=== PATIENT | female | born 1960 ===

== ENCOUNTER 2020-12-24 00:31 | Inpatient (IN) | payer MEDICARE, OTHER ==
[~2020-12-24] VITALS: Ht 170.2 cm; Wt 78.9 kg
--- NOTE | 2020-12-24 00:35 | NUR ---
PT BIB [facility] FOR MEDICAL CLEARANCE, 5150 HOLD DTS/DTO. ARRIVED CALM AND COOPERATIVE. DENIES CP/PRESSURE. NO GI/ DISTRESS. A/O X2-3, NO SOB OR LABORED BREATHING. AFEBRILE.
--- NOTE | 2020-12-24 00:40 | NUR ---
DR. HIGGINBOTHAM AT BEDSIDE, MSE IN PROGRESS.
--- NOTE | 2020-12-24 02:49 | NUR ---
Gave report to MHU nurse.
[2020-12-24] MEDS ORDERED: LITH300C2 PO (02:53)
[2020-12-24] MEDS ORDERED: DOCU100C36 PO (02:53)
[2020-12-24] MEDS ORDERED: TRIH2TAB5 PO (02:53)
--- NOTE | 2020-12-24 04:05 | NUR ---
Pt. admitted to MHU , under care of and Ac Resendiz Dx: psychosis, 5150 hold DTS/DTO Belongs List completed
[2020-12-24 04:12] VITALS: BP 142/70
[2020-12-24] MEDS ORDERED: ACETAMINOPHEN 325 MG TABLET PO PRN (04:15)
[2020-12-24] MEDS ORDERED: LORAZEPAM 0.5 MG TABLET PO PRN (04:15)
[2020-12-24] MEDS ORDERED: MAG HYDROX/AL HYDROX/SIMETH 30 ML LIQUID UDC PO PRN (04:15)
[2020-12-24] MEDS ORDERED: TEMAZEPAM 7.5 MG CAPSULE PO PRN (04:15)
--- NOTE | 2020-12-24 04:45 | NUR ---
At about 0410, admitted 60 years old female to [facility] on a 5150 for DTS and DTO. upon admission patient noted A/O x 3 able to verbalized feelings. patient was given advised of her hold and given her advisement as well as her booklet for patient right in mental health facilities. Patient stated that, "I know i said bad things to the nurse's but that was my only way because i don't want to go to that place. I told them but they didn't listen to me". patient was clam and cooperative with admission process. she denied SI/HI/VH/AH she is able to verbally CFS. She is under the care of Dr Mendez. Will continue with Q15 min checks
[2020-12-24 08:15] VITALS: BP 131/62
--- NOTE | 2020-12-24 08:45 | NUR ---
Gps/Sales Representative Livestock- Alert, ambulatory, making her simple needs known to staff, guarded, , encouraged verbalizations of her feelings, Will continue to assess monitor behavior.
--- NOTE | 2020-12-24 12:27 | NUR ---
Gps/Coil Rewind Machine Operator- Showered self ind. after set up, anxious, able to make her simple needs, known, at times when questions asked by staff, she'll say she does not want to talk about it.Stayed in the dinning room during her lunch.
[2020-12-24] MEDS: risperiDONE 1 MG TABLET PO SCH ×2 (13:02→18:01)
[2020-12-24] MEDS ORDERED: ATOR40TA PO (14:00)
[2020-12-24] MEDS ORDERED: FAMO-132 PO (14:01)
[2020-12-24] MEDS ORDERED: LISI10TA29 PO (14:02)
[2020-12-24 16:46] VITALS: BP 122/53
[2020-12-24 20:00] VITALS: BP 126/61
[2020-12-24] MEDS: DIVALPROEX 250 MG TABLET.DR PO SCH (20:58)
[2020-12-24] MEDS: ATORVASTATIN 40 MG TABLET PO SCH (20:58)
[2020-12-25 07:30] VITALS: BP 137/67
[2020-12-25 07:53] LABS: HEMATOCRIT 39.5 % (31.2-41.9); MEAN CORPUSCULAR HEMOGLOBIN 29.4 uug (24.7-32.8); MEAN CORPUSCULAR VOLUME 89.6 fL (75.5-95.3); PLATELET COUNT (AUTO) 187 K/uL (179-408)
--- NOTE | 2020-12-25 08:06 | NUR ---
FIREARMS REPORT: Casino Floor Runner completed and submitted a DOJ firearms report for 5150 grave disability certification. A copy of report has been placed in patient chart.
[2020-12-25 08:08] LABS: BILIRUBIN,TOTAL 0.4 mg/dL (0.2-1.0); CREATININE 0.6 mg/dL (0.6-1.3); POTASSIUM 4.4 mmol/L (3.5-5.1); TOTAL PROTEIN, SERUM 6.6 g/dL (6.4-8.2)
[2020-12-25] MEDS: DOCUSATE SODIUM 100 MG CAPSULE PO SCH ×2 (08:45→16:35)
[2020-12-25] MEDS: DIVALPROEX 250 MG TABLET.DR PO SCH ×2 (08:45→21:23)
[2020-12-25] MEDS: risperiDONE 1 MG TABLET PO SCH ×3 (08:45→16:35)
[2020-12-25] MEDS: FAMOTIDINE 20 MG TABLET PO SCH (08:45)
[2020-12-25] MEDS: LISINOPRIL 10 MG TABLET PO SCH (08:45)
--- NOTE | 2020-12-25 09:40 | NUR ---
RANDI Initial Discharge Note: Patient currently resides at [facility]; ([phone]). Patient does not want to return to her current facility. This SW contacted pt's public guardian conservator Jennifer ([phone]) and left a detailed voicemail. RANDI will work with treatment team.
[2020-12-25] MEDS: NICOTINE 14 MG/24HR PATCH TD SCH (10:00)
--- NOTE | 2020-12-25 10:55 | NUR ---
Social Work Note/Substance Abuse Intervention: Patient was provided with a brief substance abuse intervention and referred to [facility] ([phone]), [facility] ([phone]), and [facility] ([phone]) for smoking.
--- NOTE | 2020-12-25 11:34 | NUR ---
SW Public Guardian: This SW contacted Jennifer ([phone]) and left a voicemail and in her voicemail she stated to contact ([phone]) public guardian office and request for Unit 4. This SW spoke with Jesse Chapman who stated Jennifer is off for today but he can sign the detain and treat and stated he is a deputy public guardian as well. This SW faxed it to ([phone]).
--- NOTE | 2020-12-25 12:06 | NUR ---
Detain and Treat: This SW contacted Jennifer ([phone]) and left a voicemail and in her voicemail she stated to contact ([phone]) public guardian office and request for Unit 4. This SW spoke with Jesse Chapman ([phone]) and he signed pt's detain and treat as Jennifer is not in the office. SW left public guardian Brittaney a voicemail ([phone]) that Jesse montejo signed pt's detain and treat. This SW placed detain and treat in patient's chart.
--- NOTE | 2020-12-25 13:22 | NUR ---
RANDI Individual Therapy: social worker clinical met with patient for brief counseling and assessed for patient's presenting problem aggressive behavior. Pt appeared to be paranoid and delusional. Pt was fixated on her current facility and does not want to go back. RANDI comforted pt and stated this designer writer will help pt find a different facility. Pt appeared happy afterwards.
--- NOTE | 2020-12-25 15:11 | NUR ---
SNF Contact: This SW spoke with pt's nursing facility [facility] ([phone]) and spoke with admissions who stated pt has only been there for a day and will not accept pt back due to pt being aggressive. Admin Ralu stated they will not be able to take pt back.
--- NOTE | 2020-12-25 15:23 | NUR ---
SNF Referral: This RANDI faxed clinicals to Annetta darnell from [facility] (cellphone:[phone]) for placement option. Addendum: 12/26/20 at 1114 by RANDY HORAN Patient is accepted to [facility] for placement.
[2020-12-25 15:28] VITALS: BP 90/45
[2020-12-25 20:07] VITALS: BP 126/54
[2020-12-25] MEDS ORDERED: TEMAZEPAM 7.5 MG CAPSULE PO PRN (21:00)
[2020-12-25] MEDS: ATORVASTATIN 40 MG TABLET PO SCH (21:23)
[2020-12-26 07:30] VITALS: BP 109/59
[2020-12-26] MEDS: DOCUSATE SODIUM 100 MG CAPSULE PO SCH ×2 (08:19→17:53)
[2020-12-26] MEDS: FAMOTIDINE 20 MG TABLET PO SCH (08:20)
[2020-12-26] MEDS: risperiDONE 1 MG TABLET PO SCH ×3 (08:20→17:53)
[2020-12-26] MEDS: LISINOPRIL 10 MG TABLET PO SCH (08:20)
[2020-12-26] MEDS: DIVALPROEX 250 MG TABLET.DR PO SCH (08:20)
[2020-12-26] MEDS: NICOTINE 14 MG/24HR PATCH TD SCH (08:20)
--- NOTE | 2020-12-26 09:37 | NUR ---
RANDI Public Guardian: This RANDI contacted Jennifer ([phone]) and left a voicemail and in her voicemail she stated to contact ([phone]) public guardian office and request for Unit 4. Duty worker of the day is not available and public health social worker left a voicemail for Duty Worker Laci to discuss discharge plan.
--- NOTE | 2020-12-26 11:12 | NUR ---
RANDI Public Guardian: This SW received a call back from Jennifer ([phone]) and discussed discharge planning. RANDI informed of patient's acceptance to [facility] and Jennifer is agreeable with this placement. She stated it is in their list of facilities and patient can go there upon discharge from the hospital.
[2020-12-26 15:35] VITALS: BP 103/62
[2020-12-26 20:14] VITALS: BP 113/72
[2020-12-26] MEDS ORDERED: DIVALPROEX 250 MG TABLET.DR PO SCH (21:00)
[2020-12-26] MEDS ORDERED: risperiDONE 1 MG TABLET PO SCH (21:00)
[2020-12-26] MEDS: ATORVASTATIN 40 MG TABLET PO SCH (21:04)
[2020-12-26] MEDS: MAGNESIUM HYDROXIDE 30 ML LIQUID UDC PO PRN (21:20)
[2020-12-27 07:30] VITALS: BP 119/77
--- NOTE | 2020-12-27 07:30 | NUR ---
Received report from CULLEN Dillard. All questions, comments, and concerns were addressed. Received patient resting quietly in her assigned bed. Bed is in low and locked position.
[2020-12-27] MEDS: DIVALPROEX 250 MG TABLET.DR PO SCH ×2 (08:22→20:26)
[2020-12-27] MEDS: DOCUSATE SODIUM 100 MG CAPSULE PO SCH ×2 (08:22→16:16)
[2020-12-27] MEDS: FAMOTIDINE 20 MG TABLET PO SCH (08:22)
[2020-12-27] MEDS: LISINOPRIL 10 MG TABLET PO SCH (08:22)
[2020-12-27] MEDS: risperiDONE 1 MG TABLET PO SCH ×3 (08:22→20:27)
[2020-12-27] MEDS: NICOTINE 14 MG/24HR PATCH TD SCH (08:23)
[2020-12-27] MEDS: BENZTROPINE MESYLATE 0.5 MG TABLET PO SCH ×2 (12:17→16:16)
[2020-12-27 16:00] VITALS: BP 109/71
--- NOTE | 2020-12-27 17:16 | NUR ---
Patient is alert and oriented. She is guarded, anxious, and cooperative with staff. Patient reports that she is "depressed" because there is "a lot going on in my mind". Patient denies SI/HI, denies AH/VH. Patient is compliant with medication, no adverse reaction noted. Patient encouraged to communicate needs to staff. Encouraged to participate in the unit therapeutic milieu and group therapies. Patient is able to ambulate independently. Able to perform self care and ADL's independently.
[2020-12-27 20:19] VITALS: BP 109/70
[2020-12-27] MEDS: ATORVASTATIN 40 MG TABLET PO SCH (20:26)
--- NOTE | 2020-12-28 05:35 | NUR ---
Patient compliant with care, hyperverbal, poor insight and semi fair judgement. Patient will remain in a psych facility for further evaluation and treatment.
[2020-12-28 07:30] VITALS: BP 111/60
[2020-12-28] MEDS: FAMOTIDINE 20 MG TABLET PO SCH (08:48)
[2020-12-28] MEDS: NICOTINE 14 MG/24HR PATCH TD SCH (08:48)
[2020-12-28] MEDS: DOCUSATE SODIUM 100 MG CAPSULE PO SCH ×2 (08:48→17:04)
[2020-12-28] MEDS: risperiDONE 1 MG TABLET PO SCH ×3 (08:48→20:43)
[2020-12-28] MEDS: DIVALPROEX 250 MG TABLET.DR PO SCH ×2 (08:49→20:42)
[2020-12-28] MEDS: LISINOPRIL 10 MG TABLET PO SCH (08:49)
[2020-12-28] MEDS: BENZTROPINE MESYLATE 0.5 MG TABLET PO SCH ×3 (08:49→17:04)
[2020-12-28 16:00] VITALS: BP 103/65
[2020-12-28 20:00] VITALS: BP 129/54
--- NOTE | 2020-12-28 20:30 | NUR ---
RECEIVED PATIENT IN THE DAY ROOM, SHE IS NOTED A/O X 2. SHE IS TALKING WITH ANOTHER PEER. UPON INTERVIEW, PATIENT NOTED HYPERVERBAL, HYPERSEXUAL WITH DELUSIONAL THINKING, "I AM GOING TO THIS SOLOMON, I KNOW HIN FOR A LONG TIME". SHE REQUIRED REDIRECTION AND REASSURANCE FOR SAFETY. SAFETY AND FALL PRECAUTION IN PLACE. SHE WAS GIVEN PO FLUIDS AND SNACKS. WILL CONTINUE TO MONITOR.
[2020-12-28] MEDS: ATORVASTATIN 40 MG TABLET PO SCH (20:43)
[2020-12-29 07:30] VITALS: BP 159/99
[2020-12-29] MEDS: BENZTROPINE MESYLATE 0.5 MG TABLET PO SCH ×3 (08:39→17:01)
[2020-12-29] MEDS: risperiDONE 1 MG TABLET PO SCH ×3 (08:39→21:05)
[2020-12-29] MEDS: DIVALPROEX 250 MG TABLET.DR PO SCH ×2 (08:39→21:04)
[2020-12-29] MEDS: FAMOTIDINE 20 MG TABLET PO SCH (08:39)
[2020-12-29] MEDS: DOCUSATE SODIUM 100 MG CAPSULE PO SCH ×2 (08:39→17:01)
[2020-12-29] MEDS: LISINOPRIL 10 MG TABLET PO SCH (08:39)
[2020-12-29] MEDS: NICOTINE 14 MG/24HR PATCH TD SCH (08:39)
--- NOTE | 2020-12-29 14:10 | NUR ---
Patient endorse to C[facility]EN Delgadillo for continuity of care.
[2020-12-29 16:00] VITALS: BP 150/89
[2020-12-29] MEDS: MAGNESIUM HYDROXIDE 30 ML LIQUID UDC PO PRN (18:35)
[2020-12-29 20:01] VITALS: BP 115/69
[2020-12-29] MEDS: ATORVASTATIN 40 MG TABLET PO SCH (21:05)
[2020-12-30 07:51] VITALS: BP 106/70
[2020-12-30] MEDS: DOCUSATE SODIUM 100 MG CAPSULE PO SCH ×2 (08:14→16:14)
[2020-12-30] MEDS: FAMOTIDINE 20 MG TABLET PO SCH (08:14)
[2020-12-30] MEDS: BENZTROPINE MESYLATE 0.5 MG TABLET PO SCH ×3 (08:14→16:14)
[2020-12-30] MEDS: DIVALPROEX 250 MG TABLET.DR PO SCH ×2 (08:14→20:33)
[2020-12-30] MEDS: risperiDONE 1 MG TABLET PO SCH ×3 (08:14→20:33)
[2020-12-30] MEDS: LISINOPRIL 10 MG TABLET PO SCH (08:14)
[2020-12-30] MEDS: NICOTINE 14 MG/24HR PATCH TD SCH (08:14)
[2020-12-30 17:00] VITALS: BP 112/70
--- NOTE | 2020-12-30 18:56 | NUR ---
PT NOTED FREQUENTLY COERCING ANOTHER PT URVASHI INTO HER ROOM. PT IS INAPPROPRIATE WITH HIM AT TIMES, AND WILL ATTEMPT TO KISS HIM AND RUB HIS LEGS WHEN SEATED. WHEN INSTRUCTED THAT MALE PATIENTS CANNOT STAY IN HER ROOM, PT BEGAN BECOMING VERBALLY AGGRESSIVE AND VERBALLY ABUSIVE. PT STATES "IF YOU WANT TO WORK IN THE [employer] [facility], GET A JOB IN A [facility] YOU FUCKING CHINK. NOW LEAVE US THE FUCK ALONE."
[2020-12-30 20:01] VITALS: BP 100/62
[2020-12-30] MEDS: ATORVASTATIN 40 MG TABLET PO SCH (20:33)
[2020-12-31 08:16] VITALS: BP 114/79
[2020-12-31] MEDS: DOCUSATE SODIUM 100 MG CAPSULE PO SCH ×2 (08:31→16:17)
[2020-12-31] MEDS: risperiDONE 1 MG TABLET PO SCH ×3 (08:31→20:30)
[2020-12-31] MEDS: BENZTROPINE MESYLATE 0.5 MG TABLET PO SCH ×3 (08:32→16:16)
[2020-12-31] MEDS: DIVALPROEX 250 MG TABLET.DR PO SCH ×2 (08:32→20:31)
[2020-12-31] MEDS: NICOTINE 14 MG/24HR PATCH TD SCH (08:32)
[2020-12-31] MEDS: LISINOPRIL 10 MG TABLET PO SCH (08:32)
[2020-12-31] MEDS: FAMOTIDINE 20 MG TABLET PO SCH (08:32)
[2020-12-31 16:19] VITALS: BP 142/86
[2020-12-31 19:51] VITALS: BP 132/72
[2020-12-31] MEDS: ATORVASTATIN 40 MG TABLET PO SCH (20:29)
[2021-01-01 07:30] VITALS: BP 95/66
[2021-01-01] MEDS: risperiDONE 1 MG TABLET PO SCH ×3 (08:17→20:15)
[2021-01-01] MEDS: FAMOTIDINE 20 MG TABLET PO SCH (08:17)
[2021-01-01] MEDS: DOCUSATE SODIUM 100 MG CAPSULE PO SCH ×2 (08:17→16:41)
[2021-01-01] MEDS: NICOTINE 14 MG/24HR PATCH TD SCH (08:17)
[2021-01-01] MEDS: BENZTROPINE MESYLATE 0.5 MG TABLET PO SCH ×3 (08:17→16:41)
[2021-01-01] MEDS: DIVALPROEX 250 MG TABLET.DR PO SCH ×2 (08:17→20:15)
[2021-01-01] MEDS: LISINOPRIL 10 MG TABLET PO SCH (08:18)
[2021-01-01 15:24] VITALS: BP 109/62
[2021-01-01 20:02] VITALS: BP 102/53
[2021-01-01] MEDS: ATORVASTATIN 40 MG TABLET PO SCH (20:15)
[2021-01-01] MEDS: MAGNESIUM HYDROXIDE 30 ML LIQUID UDC PO PRN (21:04)
[2021-01-02 06:28] LABS: HEMATOCRIT 37.6 % (31.2-41.9); MEAN CORPUSCULAR HEMOGLOBIN 30.6 uug (24.7-32.8); MEAN CORPUSCULAR VOLUME 88.8 fL (75.5-95.3); PLATELET COUNT (AUTO) 205 K/uL (179-408)
[2021-01-02 06:49] LABS: BILIRUBIN,TOTAL 0.3 mg/dL (0.2-1.0); CREATININE 0.8 mg/dL (0.6-1.3); POTASSIUM 4.8 mmol/L (3.5-5.1); TOTAL PROTEIN, SERUM 6.5 g/dL (6.4-8.2)
[2021-01-02 07:30] VITALS: BP 104/48
[2021-01-02] MEDS: NICOTINE 14 MG/24HR PATCH TD SCH (08:15)
[2021-01-02] MEDS: risperiDONE 1 MG TABLET PO SCH ×3 (08:15→20:03)
[2021-01-02] MEDS: BENZTROPINE MESYLATE 0.5 MG TABLET PO SCH ×3 (08:15→17:22)
[2021-01-02] MEDS: FAMOTIDINE 20 MG TABLET PO SCH (08:15)
[2021-01-02] MEDS: DOCUSATE SODIUM 100 MG CAPSULE PO SCH ×2 (08:15→17:22)
[2021-01-02] MEDS: DIVALPROEX 250 MG TABLET.DR PO SCH ×2 (08:15→20:04)
[2021-01-02] MEDS: LISINOPRIL 10 MG TABLET PO SCH (08:16)
--- NOTE | 2021-01-02 11:15 | NUR ---
LPS Conservator Contact: This SW contacted patients LPS Conservator Public Guardian Jennifer ([phone]) and left a detailed voicemail that pt will be discharged to [facility] on Friday 01/05.
[2021-01-02 15:30] VITALS: BP 118/61
[2021-01-02] MEDS: ATORVASTATIN 40 MG TABLET PO SCH (20:03)
[2021-01-02 20:07] VITALS: BP 111/56
[2021-01-02] MEDS: MAGNESIUM HYDROXIDE 30 ML LIQUID UDC PO PRN (20:07)
--- NOTE | 2021-01-02 22:37 | NUR ---
THE PATIENT RECEIVED IN HALLWAY. PATIENT IS ALERT/ORIENTED X3. THE PATIENT IS COMPLAINT WITH MEDICATION. THE PATIENT DENIES PAIN AT THIS TIME. THE PATIENT DENIES SI. SAFE ENVIRONMENT PROVIDED, FREQUENT ROUNDING, AND CLUTTER FREE ENVIRONMENT. BED IN LOWEST POSITION, BED LOCKED, AND BED ALARM ON WHILE IN BED.
[2021-01-03 07:30] VITALS: BP 96/49
--- NOTE | 2021-01-03 07:30 | NUR ---
Received report from Ortiz Lei. All questions, comments, and concerns were addressed. Received patient resting quietly in her assigned bed. Bed is in low and locked position.
[2021-01-03] MEDS: DIVALPROEX 250 MG TABLET.DR PO SCH ×2 (08:39→20:15)
[2021-01-03] MEDS: risperiDONE 1 MG TABLET PO SCH ×3 (08:39→20:16)
[2021-01-03] MEDS: BENZTROPINE MESYLATE 0.5 MG TABLET PO SCH ×3 (08:39→16:45)
[2021-01-03] MEDS: DOCUSATE SODIUM 100 MG CAPSULE PO SCH ×2 (08:39→16:45)
[2021-01-03] MEDS: LISINOPRIL 10 MG TABLET PO SCH (08:39)
[2021-01-03] MEDS: FAMOTIDINE 20 MG TABLET PO SCH (08:39)
[2021-01-03] MEDS: NICOTINE 14 MG/24HR PATCH TD SCH (08:40)
[2021-01-03 16:17] VITALS: BP 122/65
--- NOTE | 2021-01-03 17:53 | NUR ---
patient is alert and oriented. patient is anxious, restless, and guarded. patient visible on the unit but has limited interactions with others. patient able to communicate needs to staff and is medication compliant. patient denies SI/HI, denies AH/VH. patient able to ambulate independently, able to perform self care and ADL's independently. patient preoccupied and anxious about discharge, this race and sports book writer provided redirection and reassurance to the patient that she will be discharged soon and that her behavior on the unit is good.
[2021-01-03] MEDS: ATORVASTATIN 40 MG TABLET PO SCH (20:16)
[2021-01-03] MEDS: MAGNESIUM HYDROXIDE 30 ML LIQUID UDC PO PRN (20:22)
[2021-01-03 21:27] VITALS: BP 126/73
--- NOTE | 2021-01-04 06:16 | NUR ---
Patient is med compliant, pleasant upon approach, patient can be attention seeking and needy, semi fair insight and judgment. Med compliant. Patient slept 6 hours and 15mins. Patient will remain in a psych facility for further evaluation and treatment.
[2021-01-04 07:30] VITALS: BP 113/65
[2021-01-04] MEDS: FAMOTIDINE 20 MG TABLET PO SCH (09:58)
[2021-01-04] MEDS: LISINOPRIL 10 MG TABLET PO SCH (09:59)
[2021-01-04] MEDS: risperiDONE 1 MG TABLET PO SCH ×3 (09:59→20:24)
[2021-01-04] MEDS: BENZTROPINE MESYLATE 0.5 MG TABLET PO SCH ×3 (10:01→16:47)
[2021-01-04] MEDS: DIVALPROEX 250 MG TABLET.DR PO SCH ×2 (10:01→20:24)
[2021-01-04] MEDS: DOCUSATE SODIUM 100 MG CAPSULE PO SCH ×2 (10:01→16:47)
[2021-01-04] MEDS: NICOTINE 14 MG/24HR PATCH TD SCH (10:11)
[2021-01-04] MEDS: MAGNESIUM HYDROXIDE 30 ML LIQUID UDC PO PRN (15:42)
[2021-01-04 16:00] VITALS: BP 107/65
--- NOTE | 2021-01-04 17:18 | NUR ---
Gps/Manager Medical Device- Nasal swabbed for covid antigen obtained and sent to lab.
[2021-01-04 20:00] VITALS: BP 105/63
[2021-01-04] MEDS: ATORVASTATIN 40 MG TABLET PO SCH (20:24)
[2021-01-05 07:30] VITALS: BP 110/49
--- NOTE | 2021-01-05 08:05 | NUR ---
SW Discharge Note: [facility] [address] [facility] [address] ([phone]). Patient will be provided with ambulance transportation today at 1pm. Spoke with Vincenzo, crm coordinator who state they are ready to accept the patient today. Patient is aware and agreeable with discharge plans and presents with appropriate mood and congruent affect. Patient is alert and oriented x3, is unable to plan for self-care, however, is willing to received care provided at [facility]. Patient denies any suicidal or homicidal ideation. Patient will follow-up at the facility with Psychiatrist Dr. Mendez and Seating Captain Dr. Rojas. Patients LPS Conservator Public Guardisam Rodriguez ([phone]) is aware and agreeable with discharge plan. Patient was provided referrals to the following substance abuse programs for smoking: [facility] ([phone]); [facility] [address] [place] [address] ([phone]); [facility] [address] [facility] [address] ([phone]); [facility] ([phone]); [facility] ([phone]); [facility] ([phone]); [facility] ([phone]). Patient presented with euthymic and congruent mood.
[2021-01-05] MEDS: DIVALPROEX 250 MG TABLET.DR PO SCH (08:10)
[2021-01-05] MEDS: NICOTINE 14 MG/24HR PATCH TD SCH (08:10)
[2021-01-05] MEDS: risperiDONE 1 MG TABLET PO SCH ×2 (08:10→12:06)
[2021-01-05 08:11] VITALS: BP 110/49
[2021-01-05] MEDS: BENZTROPINE MESYLATE 0.5 MG TABLET PO SCH ×2 (08:11→12:06)
[2021-01-05] MEDS: DOCUSATE SODIUM 100 MG CAPSULE PO SCH (08:11)
[2021-01-05] MEDS: LISINOPRIL 10 MG TABLET PO SCH (08:11)
[2021-01-05] MEDS: FAMOTIDINE 20 MG TABLET PO SCH (08:11)
--- NOTE | 2021-01-05 16:00 | NUR ---
PT LEFT UNIT ACCOMPANIED BY 2 EMT'S ON [facility]. LEFT WITH ALL NOTED BELONGINGS AND PAPERWORK. NO AGGRESSIVE OR COMBATIVE BEHAVIOR NOTED. ABLE TO MAKE ALL NEEDS KNOWN. DENIES PAIN OR DISCOMFORT. DENIES SUICIDAL AND HOMICIDAL IDEATIONS. IN NO ACUTE DISTRESS.
== END 2021-01-05 16:00 | DRG 885 ==
LOC: ER 00:34 → GPS 03:51
PROVIDERS: ADMIT Psychiatry & Neurology Psychosomatic Medicine; ATTEND Nurse Practitioner Acute Care
DX: F25.9 Schizoaffective disorder, unspecified (principal); R45.851 Suicidal ideations; E78.5 Hyperlipidemia, unspecified; I10 Essential (primary) hypertension; F41.9 Anxiety disorder, unspecified; K21.9 Gastro-esophageal reflux disease without esophagitis; Z20.822 Contact with and (suspected) exposure to COVID-19; F29 Unspecified psychosis not due to a substance or known physiological condition; R45.850 Homicidal ideations; F39 Unspecified mood [affective] disorder
CPT/HCPCS: 36415; 71045; 80164; 85025; 93005; 97161; A4663; J3490